=== PATIENT | female | born 1945 | race Caucasian/White ===

== ENCOUNTER → 2017-09-30 | Outpatient (CLI) | payer MEDICARE ==
[~2017-09-30] MED LIST: ASPI-496 PO; CHOL5000 PO; METO25TA91 PO; VITA1TAB19 PO
== END | disposition home or self-care (01) ==
LOC: STAR 11:09
PROVIDERS: ATTEND Student in an Organized Health Care Education/Training Program
DX: Z01.818 Encounter for other preprocedural examination (principal); N95.0 Postmenopausal bleeding
CPT/HCPCS: 93005

== ENCOUNTER 2017-10-07 10:05 | Day surgery (SDC) | payer MEDICARE ==
[~2017-10-07] VITALS: Ht 175.3 cm; Wt 77.0 kg
[2017-10-07 10:34] VITALS: BP 155/81
[2017-10-07] MEDS ORDERED: LACTATED RINGERS 1,000 ML IV SCH (10:37)
[2017-10-07] MEDS ORDERED: DOXYCYCLINE 100MG TABLET PO ONE ×2 (11:00→14:00)
[2017-10-07] MEDS ORDERED: SILVER NITRATE STICK TP ONE (11:20)
[2017-10-07] MEDS ORDERED: FENTANYL PF 100 MCG/2ML ONE (11:43)
[2017-10-07] MEDS ORDERED: MIDAZOLAM 1 MG/ML, 2ML ONE (11:43)
[2017-10-07] MEDS ORDERED: ONDANSETRON ODT 8 MG ONE ×2 (11:44→14:22)
[2017-10-07] MEDS ORDERED: PROPOFOL 10 MG/ML, 20ML ONE (11:58)
[2017-10-07] MEDS ORDERED: PHENYLEPHRINE 10 MG/ML ONE (12:00)
[2017-10-07] MEDS ORDERED: DEXAMETHASONE 4 MG/ML, 1ML ONE ×2 (12:01)
[2017-10-07] MEDS ORDERED: KETOROLAC 30 MG/1 ML ONE (12:38)
[2017-10-07] MEDS ORDERED: HALOPERIDOL 5 MG/ML IV PRN (13:30)
[2017-10-07] MEDS ORDERED: OXYcodone 5 MG/5 ML ORAL.SOL UDC PO PRN (13:30)
[2017-10-07] MEDS ORDERED: FENTANYL PF 100 MCG/2ML IV PRN (13:30)
[2017-10-07] MEDS ORDERED: MORPHINE SULFATE 4 MG/ML, 1ML IVPush PRN (13:30)
[2017-10-07] MEDS ORDERED: PROMETHAZINE 25 MG/ML, 1ML IV PRN (13:30)
[2017-10-07] MEDS ORDERED: MEPERIDINE/PF 25MG/0.5ML IVPush PRN (13:30)
[2017-10-07] MEDS ORDERED: ACETAMINOPHEN 325 MG TABLET PO PRN (13:30)
== END 2017-10-07 16:00 ==
LOC: OUT 10:05
PROVIDERS: ATTEND Student in an Organized Health Care Education/Training Program
DX: N95.0 Postmenopausal bleeding (principal); I48.0 Paroxysmal atrial fibrillation; E78.5 Hyperlipidemia, unspecified; E03.9 Hypothyroidism, unspecified
CPT/HCPCS: 36415; 58558; 86850; 86900; 88305; J1100; J1885; J2370; J2704; J7120

== ENCOUNTER → 2018-08-30 | Outpatient (CLI) | payer MEDICARE ==
[~2018-08-30] MED LIST changes: +REGADENOSON 0.4 MG/5 ML SYRINGE ONE
== END | disposition home or self-care (01) ==
LOC: CFH 11:55
PROVIDERS: ATTEND Internal Medicine Cardiovascular Disease
DX: I48.0 Paroxysmal atrial fibrillation (principal)
CPT/HCPCS: 78452; 93017; A9502; J2785

== ENCOUNTER 2019-03-16 06:53 | Observation (INO) | payer MEDICARE ==
[2019-03-14 12:00] VITALS: BP 125/88
[2019-03-14 12:37] LABS: BASOPHILS # (AUTO) 0.04 x10^3/uL (0-0.1); BASOPHILS % (AUTO) 1 % (0-1); EOSINOPHILS % (AUTO) 1 % (1-7); LYMPHOCYTES # (AUTO) 1.47 x10^3/uL (1-3.4); LYMPHOCYTES % (AUTO) 18 % (22-44); MD NO; MEAN CORPUSCULAR HEMOGLOBIN 31.1 pg (27.0-34.8); MEAN CORPUSCULAR HGB CONC 32.5 g/dL (32.4-35.8); MEAN CORPUSCULAR VOLUME 95.6 fL (80-100); MEAN PLATELET VOLUME 9.3 fL (7.4-10.4); MONOCYTES # (AUTO) 0.64 x10^3/uL (0.2-0.8); MONOCYTES % (AUTO) 8 % (2-9); NEUTROPHILS # (AUTO) 5.92 x10^3/uL (1.8-6.8); NEUTROPHILS % (AUTO) 73 % (42-75); PLATELET COUNT 186 x10^3/uL (130-400); RED BLOOD COUNT 4.34 x10^6/uL (3.82-5.3); RED CELL DISTRIBUTION WIDTH 14.4 % (9.6-15.2)
[2019-03-14 13:04] LABS: ANION GAP 4 mmol/L (5-15); CALCIUM 9.1 mg/dL (8.5-10.1); CHLORIDE 111 mmol/L (98-107); CREATININE 1.04 mg/dL (0.55-1.02)
[~2019-03-16] VITALS: Ht 175.3 cm; Wt 83.8 kg
[~2019-03-16 06:53] MED LIST changes: +ATOR80TA PO; +FLEC50TA25 PO; +METO25TA35 PO; -REGADENOSON 0.4 MG/5 ML SYRINGE ONE; +RIVA20TA PO
[2019-03-16] MEDS ORDERED: SODIUM CHLORIDE 0.9% 1,000 ML IV ONE (09:00)
[2019-03-16] MEDS ORDERED: PROPOFOL 50 ML ONE (09:45)
[2019-03-16] MEDS ORDERED: FENTANYL PF 250 MCG/5ML ONE (09:45)
[2019-03-16] MEDS ORDERED: MIDAZOLAM 1 MG/ML, 2ML ONE (09:45)
[2019-03-16] MEDS ORDERED: SODIUM CHLORIDE 0.9% 1,000 ML IV SCH (10:00)
[2019-03-16] MEDS ORDERED: LIDOCAINE 1%, 20ML ONE (10:15)
[2019-03-16] MEDS ORDERED: ISOPROTERENOL 0.2MG/ML, 5ML ONE (10:15)
[2019-03-16] MEDS ORDERED: ROCURONIUM 10MG/ML,5ML ONE (11:40)
[2019-03-16] MEDS ORDERED: HEPARIN 1,000 UNITS/ML, 10ML ONE ×2 (11:42)
[2019-03-16] MEDS ORDERED: DEXAMETHASONE 4 MG/ML, 1ML ONE (11:42)
[2019-03-16] MEDS ORDERED: SUCCINYLCHOLINE 20 MG/ML, 10ML ONE (11:42)
[2019-03-16] MEDS ORDERED: ONDANSETRON 2MG/ML, 2ML ONE (11:42)
[2019-03-16] MEDS ORDERED: RIVAROXABAN 20 MG TABLET PO SCH (12:30)
[2019-03-16] MEDS ORDERED: EPHEDRINE 50 MG/ML, 1ML IVPush PRN (13:00)
[2019-03-16] MEDS ORDERED: DIAZEPAM 5 MG/ML, 2ML IVPush PRN (13:00)
[2019-03-16] MEDS ORDERED: ONDANSETRON ODT 8 MG PO PRN (13:00)
[2019-03-16] MEDS ORDERED: MEPERIDINE/PF 25MG/ML,1ML IVPush PRN (13:00)
[2019-03-16] MEDS ORDERED: ONDANSETRON 2MG/ML, 2ML IV PRN (13:00)
[2019-03-16] MEDS ORDERED: MORPHINE SULFATE 4 MG/ML, 1ML IVPush PRN (13:00)
[2019-03-16] MEDS ORDERED: ACETAMINOPHEN 325 MG TABLET PO PRN (13:00)
[2019-03-16] MEDS ORDERED: DIPHENHYDRAMINE 50 MG/ML, 1ML IVPush PRN (13:00)
[2019-03-16] MEDS ORDERED: PROMETHAZINE 25 MG/ML, 1ML IV PRN (13:00)
[2019-03-16] MEDS ORDERED: EPHEDRINE 50 MG/ML, 1ML IM PRN (13:00)
[2019-03-16] MEDS ORDERED: MIDAZOLAM 1 MG/ML, 2ML IV PRN (13:00)
[2019-03-16] MEDS ORDERED: OXYcodone 5 MG/5 ML ORAL.SOL UDC PO PRN (13:00)
[2019-03-16] MEDS ORDERED: FENTANYL PF 100 MCG/2ML IV PRN (13:00)
[2019-03-16] MEDS: RIVAROXABAN 20 MG TABLET PO SCH (15:43)
[2019-03-16 20:16] VITALS: BP 110/71
[2019-03-16] MEDS: METOPROLOL TARTRATE 25 MG TABLET PO SCH (20:21)
[2019-03-16] MEDS: FLECAINIDE 50MG TABLET PO SCH (20:21)
[2019-03-16] MEDS ORDERED: ATORVASTATIN 80 MG TABLET PO SCH (21:00)
[2019-03-16 21:17] VITALS: BP 111/70
[2019-03-17 02:00] VITALS: BP 95/60
[2019-03-17] MEDS ORDERED: RIVAROXABAN 20 MG TABLET PO SCH (07:00)
[2019-03-17 07:37] VITALS: BP 110/62
[2019-03-17] MEDS: METOPROLOL TARTRATE 25 MG TABLET PO SCH (07:53)
[2019-03-17] MEDS: FLECAINIDE 50MG TABLET PO SCH (07:53)
[2019-03-17] MEDS: RIVAROXABAN 20 MG TABLET PO SCH (07:53)
[2019-03-17] MEDS ORDERED: FLU VACCINE PER PHARMACY IM ONE (10:30)
[2019-03-17] MEDS ORDERED: FLU VACC QS2019-20 36MOS UP/PF 0.5 ML IM-VACC ONE (11:00)
[2019-03-17] MEDS ORDERED: KETOROLAC 30 MG/1 ML IV ONE (11:00)
== END 2019-03-17 11:54 | disposition home or self-care (01) ==
LOC: CACL 06:53 → ORIP 12:28 → 5SO 13:55 → DCLOUNGE 03-17 11:48
PROVIDERS: ADMIT Internal Medicine Cardiovascular Disease; ATTEND Internal Medicine Cardiovascular Disease
DX: I48.91 Unspecified atrial fibrillation (principal); Z79.899 Other long term (current) drug therapy; Z23 Encounter for immunization
CPT/HCPCS: 36415; 71046; 80048; 85025; 90472; 90686; 93306; 93312; 93321; 93325; 93613; 93656; 93657; 93662; 96374; C1730; C1732; C1759; C1766; C1893; C1894; G0008; G0378; J0330; J1100; J1644; J1885; J2250; J2405; J2704; J3010; J3490; 85347; 90471